=== PATIENT | female | born 1985 | race Caucasian/White ===

== ENCOUNTER 2021-10-26 09:32 | Outpatient (CLI) | payer OTHER | END 2021-10-26 09:44 | disposition home or self-care (01) | LOC: RX STUDY 09:32 | PROVIDERS: ATTEND Student in an Organized Health Care Education/Training Program | DX: N84.0 Polyp of corpus uteri (principal); D25.9 Leiomyoma of uterus, unspecified ==

== ENCOUNTER 2023-12-10 13:09 | Outpatient (CLI) | payer OTHER | END 2023-12-10 13:12 | disposition home or self-care (01) | LOC: PRENATAL 13:09 | PROVIDERS: ATTEND Obstetrics & Gynecology Maternal & Fetal Medicine | DX: Z76.1 Encounter for health supervision and care of foundling (principal) ==

== ENCOUNTER 2024-04-08 09:17 | Outpatient (CLI) | payer OTHER | END 2024-04-08 09:38 | disposition home or self-care (01) | LOC: TOM 09:17 | DX: N70.11 Chronic salpingitis (principal) ==